=== PATIENT | female | born 1995 | race Caucasian/White ===

== ENCOUNTER 2020-06-21 10:45 | Inpatient (IN) | payer OTHER ==
[~2020-06-21 10:45] MED LIST: BUSPAR5 MG PO; LEVETIRACETAM500 MG PO; nausea med
[2020-06-21 12:26] LABS: HCT 31.4 % (37.0-47.0); HGB 10.7 g/dl (12.5-16.0); MCH 29.3 pg (25.0-31.0); MCHC 34.1 g/dL (32.0-36.0); MPV 10.9 fL (6.0-9.5); RBC 3.65 M/uL (4.20-5.40); RDW 13.8 % (11.5-14.0); WBC 9.6 K/uL (4.0-10.5)
[2020-06-21 12:27] LABS: BILIRUBIN NEGATIVE (NEGATIVE); BLOOD 1+ Ery/uL (NEGATIVE); CLARITY CLEAR (CLEAR); COLOR YELLOW (YELLOW); GLUCOSE (U) NORMAL (NORMAL); LEUKOCYTES NEGATIVE Leu/uL (NEGATIVE); NITRITE NEGATIVE (NEGATIVE); PROTEIN NEGATIVE (NEGATIVE); UROBILINOGEN 0.2 mg/dL (0.2-1.0); pH 6.5 (5.0-9.0)
[2020-06-21 12:34] LABS: BACTERIA TRACE
[2020-06-22 06:11] LABS: HCT 24.6 % (37.0-47.0); HGB 8.3 g/dl (12.5-16.0); MCH 29.4 pg (25.0-31.0); MCHC 33.7 g/dL (32.0-36.0); MCV 87.2 fL (78.0-100.0); MPV 11.1 fL (6.0-9.5); RBC 2.82 M/uL (4.20-5.40); RDW 13.8 % (11.5-14.0); WBC 8.2 K/uL (4.0-10.5)
[2020-10-27] MEDS ORDERED: NORCO 5-325 TA1 EACH PO (17:27)
== END 2020-06-23 12:08 | disposition home or self-care (01) | DRG 806 ==
LOC: FOD 10:45 → FOB 10:46
PROVIDERS: ADMIT Obstetrics & Gynecology
PROC: 10E0XZZ Delivery of Products of Conception, External Approach (ICD-10-PCS; principal; 2020-06-21)
PROC: 0KQM0ZZ Repair Perineum Muscle, Open Approach (ICD-10-PCS; 2020-06-21)
PROC: 3E0234Z Introduction of Serum, Toxoid and Vaccine into Muscle, Percutaneous Approach (ICD-10-PCS; 2020-06-22)
DX: O36.8930 Maternal care for other specified fetal problems, third trimester, not applicable or unspecified (principal); D62 Acute posthemorrhagic anemia; Z37.0 Single live birth; O99.354 Diseases of the nervous system complicating childbirth; O36.5930 Maternal care for other known or suspected poor fetal growth, third trimester, not applicable or unspecified; Z20.822 Contact with and (suspected) exposure to COVID-19; O99.02 Anemia complicating childbirth; O26.893 Other specified pregnancy related conditions, third trimester; Z67.41 Type O blood, Rh negative; Z3A.38 38 weeks gestation of pregnancy; O70.1 Second degree perineal laceration during delivery; G40.909 Epilepsy, unspecified, not intractable, without status epilepticus; Z20.2 Contact with and (suspected) exposure to infections with a predominantly sexual mode of transmission; O99.214 Obesity complicating childbirth; E66.9 Obesity, unspecified; O99.824 Streptococcus B carrier state complicating childbirth; O69.81X0 Labor and delivery complicated by cord around neck, without compression, not applicable or unspecified
CPT/HCPCS: 36415; 81001; 85461; 86850; 86900; 86901; J2001; J2405; J2540; J2790; J2916; J7120; U0002

== ENCOUNTER 2020-10-26 06:01 | Emergency (ER) | payer OTHER ==
[2020-10-26] MEDS ORDERED: ONDANSETRON ODT4 MG PO (10:08)
[2020-10-26] MEDS ORDERED: NORCO 5-325 TA1 EACH PO (10:08)
[2020-10-27] MEDS ORDERED: NORCO 5-325 TA1 EACH PO (17:27)
== END 2020-10-26 10:31 | disposition home or self-care (01) ==
LOC: FER 06:01
DX: S01.411A Laceration without foreign body of right cheek and temporomandibular area, initial encounter (principal); S01.01XA Laceration without foreign body of scalp, initial encounter; Z88.1 Allergy status to other antibiotic agents; Z23 Encounter for immunization; W22.8XXA Striking against or struck by other objects, initial encounter
CPT/HCPCS: 70450; 70486; 71045; 72125; 90471; 96372; J1170